=== PATIENT | female | born 1990 | race Caucasian/White ===

== ENCOUNTER → 2019-09-18 15:55 | Outpatient (BNVA) | payer OTHER, SELFPAY | PROVIDERS: Visit Provider Nurse Practitioner Women's Health | DX: Z01.419 Encounter for gynecological examination (general) (routine) without abnormal findings (principal); Z11.3 Encounter for screening for infections with a predominantly sexual mode of transmission | CPT/HCPCS: 87491; 87591; 87661; 88175 ==

== ENCOUNTER → 2019-11-19 13:54 | Outpatient (BNVA) | payer OTHER, SELFPAY | PROVIDERS: Visit Provider Obstetrics & Gynecology | DX: Z01.812 Encounter for preprocedural laboratory examination (principal); R87.610 Atypical squamous cells of undetermined significance on cytologic smear of cervix (ASC-US); R87.810 Cervical high risk human papillomavirus (HPV) DNA test positive | CPT/HCPCS: 81025; 88305 ==

== ENCOUNTER → 2020-05-19 11:05 | Outpatient (BNVA) | payer OTHER, SELFPAY | PROVIDERS: PCP Nurse Practitioner Family; Visit Provider Internal Medicine Rheumatology | DX: M35.00 Sjogren syndrome, unspecified (principal); R21 Rash and other nonspecific skin eruption; Z79.899 Other long term (current) drug therapy; R59.0 Localized enlarged lymph nodes | CPT/HCPCS: 99204 ==

== ENCOUNTER 2020-06-03 14:01 | Outpatient (CLI) | payer OTHER, SELFPAY ==
--- NOTE | 2020-06-03 14:15 | US_ITS ---
WS: [id number] INDICATION: Right neck lump TECHNIQUE: Ultrasound soft tissue FINDINGS: Ultrasound soft tissue area of concern. Ultrasound is performed in the area of palpable con cern. Hypoechoic ovoid lesion measuring 2.1 x 1.0 x 0.6 cm RIGHT neck with central echogenicity likel y represents an enlarged lymph node. Associated abnormal cortical thickening with partial loss of the central fatty hilum. Similar-appearing enlarged lymph node in the LEFT neck measuring 1.4 x 0.6 x 1.3 CM adjacent to the s ubmandibular gland. Additional hypoechoic subcutaneous nodule also in the area of concern RIGHT neck measuring 7 x 2 mm a lso likely represents a small lymph node. US/US soft tissue head neck [id number] IMPRESSION: Enlarged abnormal appearing lymph nodes in the right greater than l eft submandibular space. Recommend further evaluation with contrast-enhanced ne ck CT for better anatomic detail.
[2020-06-03 15:30] LABS: Basophils % 0.3 %; Eosinophils # 0.1 10^3/uL (0.0-0.8); Eosinophils % 0.8 %; Hematocrit 42.5 % (37.0-47.0); Hemoglobin 13.7 g/dL (11.5-15.3); Lymphocytes # 3.1 10^3/uL (0.8-4.8); Lymphocytes % 51.4 %; Mean Corpuscular HGB Conc 32.2 g/dL (30.0-36.0); Mean Corpuscular Hemoglobin 30.8 pg (28.0-34.0); Mean Corpuscular Volume 95.5 fL (81-99); Mean Platelet Volume 10.1 fL (7.4-10.4); Monocytes # 0.3 10^3/uL (0.2-0.9); Monocytes % 4.9 %; Neutrophils # 2.57 10^3/uL (1.8-7.7); Neutrophils % 42.4 %; Nucleated Red Blood Cells % 0 %; Platelet Count 235 10^3/cmm (130-400); Red Blood Count 4.45 10^6/uL (4.1-5.3); Red Cell Distribution Width 11.7 % (12.1-15.1); White Blood Count 6.1 10^3/uL (4.0-10.0)
[2020-06-03 15:56] LABS: Alanine Aminotransferase 12 U/L (0-33); Albumin Level 4.7 g/dL (3.5-5.2); Alkaline Phosphatase 63 IU/L (35-105); Globulin 2.8 g/dL (1.3-4.6); Glomerular Filtration Rate 145.9 mL/min (90-130); Total Bilirubin 0.3 mg/dL (0.15-1.2); Total Protein 7.5 g/dL (6.6-8.7)
[2020-06-03 15:58] LABS: Aspartate Amino Transferase 21 U/L (0-32)
[2020-06-03 15:58] LABS: Bilirubin Urine Neg (Negative); Blood Urine Neg (Negative); Glucose Urine UA Norm (Normal); Ketones Urine Negative (Negative); Leukocyte Esterase Urine Negative (Negative); Nitrate Urine Negative (Negative); Protein Urine Neg (Negative); Specific Gravity, Urine 1.005 (1.005-1.030); Urine Appearance Clear (CLEAR); Urine Color Straw (Yellow); Urobilinogen Urine Norm (Negative); pH Urine 6.5 (5-7)
[2020-06-03 16:04] LABS: Add Urine Culture? No; Bacteria Urine TRACE /hpf; RBC Urine RARE /hpf (0-2); Squamous Epithelial Cell Urine 0-4 /hpf (0-5); WBC Urine 0-4 /hpf (0-5)
[2020-06-03 16:24] LABS: Urine Creatinine 24 mg/dL (28-217); Urine Protein Random 4 mg/dL
[2020-06-06 12:18] LABS: Anti-Double Strand DNA AB <1 IU/mL; SCL 70 <1.0 NEG AI (<1.0 NEG)
[2020-06-06 13:53] LABS: Centromere B Antibody <1.0 NEG AI (<1.0 NEG); JO-1 Antibody <1.0 NEG AI (<1.0 NEG)
[2020-06-06 14:28] LABS: Thyroid Peroxidase Antobodies 2 IU/mL (<9)
== END 2020-06-03 14:02 | disposition home or self-care (01) ==
LOC: US 14:03
PROVIDERS: PCP Nurse Practitioner Family; Visit Provider Internal Medicine Rheumatology
DX: M35.00 Sjogren syndrome, unspecified (principal); Z79.899 Other long term (current) drug therapy
CPT/HCPCS: 36415; 76536; 80076; 81001; 82565; 82570; 84156; 85025; 86225; 86235; 86376

== ENCOUNTER 2020-06-24 07:50 | Outpatient (CLI) | payer OTHER, SELFPAY ==
--- NOTE | 2020-06-24 08:10 | CT_ITS ---
WS: [id number] CT NECK WITH CONTRAST HISTORY: M35.00 - Sicca syndrome, unspecified TECHNIQUE: Contiguous 5 mm axial images are performed through the neck with intravenous contrast. Sag ittal and coronal reformats are also submitted. All CT scans at [facility] use at least o ne of these dose optimization techniques: automated exposure control; mA and/or kV adjustment per pat ient size (includes targeted exams where dose is matched to clinical indication); or iterative recons truction. CONTRAST: CONTRAST: Omnipaque 300; 95 mL IV. DLP: 1023.41 mGycm COMPARISON: None available. Nasopharynx, oropharynx, hypopharynx and larynx are unremarkable. No soft tissue masses or abnormal e nhancement. Torus tubarius and fossa of Rosenmuller and parapharyngeal fat are normal. Palpable marker along the RIGHT neck corresponds to a benign level II lymph node measuring 7.2 mm in short axis diameter. There are numerous small lymph nodes throughout the cervical chains beginning at level I through level III and level V. These lymph nodes all measure less than a centimeter. Thyroid gland and salivary glands are normally enhancing with no masses. No osseous abnormalities. Visualized portions of the skull base demonstrate no abnormalities. Orbits and globes are within norm al limits. No soft tissue masses. Visualized paranasal sinuses and mastoid air cells are normal. Lung apices are clear. CT/CT neck w con* [id number] IMPRESSION: 1. No enlarged lymph nodes throughout the cervical chains. Palpable marker sintia ng the RIGHT neck corresponds to a level II lymph node which appears normal. 2. Previously enlarged abnormal lymph nodes on this ultrasound of 06/03/2020 are not apparent. These may have been reactive lymph nodes that have returned to n ormal in the interval.
[2020-06-24] MEDS: iohexol 300 mg/mL 100 mL Btl IV (08:25)
== END 2020-06-24 07:51 | disposition home or self-care (01) ==
PROVIDERS: PCP Nurse Practitioner Family; Visit Provider Internal Medicine Rheumatology
DX: M35.00 Sjogren syndrome, unspecified (principal); R59.0 Localized enlarged lymph nodes; R59.9 Enlarged lymph nodes, unspecified
CPT/HCPCS: 70491; Q9967

== ENCOUNTER → 2020-07-27 11:44 | Outpatient (BNVA) | payer OTHER, SELFPAY | PROVIDERS: PCP Nurse Practitioner Family; Visit Provider Obstetrics & Gynecology | DX: A60.9 Anogenital herpesviral infection, unspecified (principal); N89.8 Other specified noninflammatory disorders of vagina; N94.9 Unspecified condition associated with female genital organs and menstrual cycle | CPT/HCPCS: 86694; 86695; 86696; 87481; 87512; 87799 ==